=== PATIENT | female | born 1965 | race Caucasian/White ===

== ENCOUNTER → 2020-10-02 10:18 | Outpatient (CLI) | payer OTHER, SELFPAY ==
[2020-10-02] MEDS: COVID-19 VACC(MODERNA-1)/PF 100 MCG/0.5 ML VIAL IM (10:22)
== END ==
PROVIDERS: Visit Provider Internal Medicine
DX: Z23 Encounter for immunization (principal)
CPT/HCPCS: 0011A; 91301

== ENCOUNTER → 2020-10-30 10:11 | Outpatient (CLI) | payer OTHER, SELFPAY ==
[2020-10-30] MEDS: COVID-19 VACC #2, MRNA(MOD) 100 MCG/0.5 ML VIAL IM (10:17)
== END ==
PROVIDERS: Visit Provider Internal Medicine
DX: Z23 Encounter for immunization (principal)
CPT/HCPCS: 0012A; 91301